=== PATIENT | female | born 1985 | race Caucasian/White ===

== ENCOUNTER 2016-12-15 02:34 | Emergency (ER) | payer OTHER ==
[2016-12-15 04:41] LABS: HEMOGLOBIN 14.7 gm/dl (12.3-15.3); RED BLOOD COUNT 4.58 M/UL (4.00-5.10); WHITE BLOOD COUNT 7.3 K/UL (4.5-11.0)
[2016-12-15 04:57] LABS: BUN/CREATININE RATIO 18 (0-10)
== END 2016-12-15 07:00 | disposition home or self-care (01) ==
LOC: ER1 02:34
PROVIDERS: Emergency Medicine
DX: G43.809 Other migraine, not intractable, without status migrainosus (principal); I34.1 Nonrheumatic mitral (valve) prolapse; Z79.02 Long term (current) use of antithrombotics/antiplatelets
CPT/HCPCS: 36415; 70450; 71010; 80053; 83690; 84484; 84703; 85025; 93005; 96361; 96374; 96375; 99284; J1100; J1200; J2765

== ENCOUNTER 2017-02-06 19:56 | Emergency (ER) | payer OTHER | END 2017-02-06 21:38 | disposition home or self-care (01) | LOC: ER1 19:56 | DX: H66.93 Otitis media, unspecified, bilateral (principal); F17.210 Nicotine dependence, cigarettes, uncomplicated | CPT/HCPCS: 99282 ==

== ENCOUNTER 2021-06-18 12:44 | Emergency (ER) | payer OTHER ==
[~2021-06-18 12:44] MED LIST: DOXYCYCLINE HY100 MG PO; MOBIC15 MG PO; PROAIR HFA8.5 GM INH
== END 2021-06-18 13:18 | disposition home or self-care (01) ==
LOC: ER1 12:44
DX: Z53.21 Procedure and treatment not carried out due to patient leaving prior to being seen by health care provider (principal)

== ENCOUNTER 2021-06-19 13:00 | Emergency (ER) | payer OTHER | END 2021-06-19 13:33 | disposition left against medical advice (07) | LOC: ER1 13:00 | DX: Z53.21 Procedure and treatment not carried out due to patient leaving prior to being seen by health care provider (principal) ==

== ENCOUNTER 2021-07-14 18:44 | Emergency (ER) | payer OTHER | END 2021-07-14 20:04 | disposition left against medical advice (07) | LOC: ER1 18:44 | DX: Z53.21 Procedure and treatment not carried out due to patient leaving prior to being seen by health care provider (principal) ==

== ENCOUNTER 2021-10-13 14:03 | Emergency (ER) | payer OTHER ==
[~2021-10-13 14:03] MED LIST changes: +CEPHALEXIN500 M1 PO
[2021-10-13 15:14] LABS: RED BLOOD COUNT 4.45 M/UL (4.00-5.10); WHITE BLOOD COUNT 7.4 K/UL (4.5-11.0)
[2021-10-13 15:16] LABS: BUN/CREATININE RATIO 8 (0-10)
== END 2021-10-13 16:40 ==
LOC: ER1 14:03
PROVIDERS: Emergency Medicine
DX: R29.810 Facial weakness (principal); F17.200 Nicotine dependence, unspecified, uncomplicated
CPT/HCPCS: 70450; 71045; 80053; 80307; 81001; 82550; 82553; 83874; 84484; 84703; 85025; 85610; 85730; 93005; 96374; 99285; J2997